=== PATIENT | female | born 1955 | race African-American/Black ===

== ENCOUNTER 2019-09-25 17:01 | Inpatient (IN) | payer BC ==
[~2019-09-25] VITALS: Ht 162.6 cm; Wt 82.1 kg
[2019-09-25] MEDS ORDERED: IPRATROPIUM BROMIDE (0.02%) 0.5MG/2.5ML NEB HHN STA (17:49)
[2019-09-25] MEDS ORDERED: METHYLPREDNISOLONE SOD SUCC 125 MG/2 ML VIAL IV STA (17:49)
[2019-09-25] MEDS ORDERED: ALBUTEROL (0.083%) 2.5MG/3ML NEB HHN STA ×2 (17:49→19:36)
[2019-09-25 18:34] LABS: BASOPHILS % 0.3 % (0.0-2.0); EOSINOPHILS % 4.9 % (0.0-5.0); HEMATOCRIT. 43.3 % (36.0-48.0); HEMOGLOBIN. 13.9 g/dL (12.0-16.0); LYMPHOCYTES % 27.1 % (20.0-50.0); MEAN CORPUSCULAR HEMOGLOBIN 28.6 pg (28.0-32.0); MEAN CORPUSCULAR VOLUME 88.9 fL (81.0-99.0); MEAN PLATELET VOLUME 7.4 fl (7.4-10.4); MONOCYTES % 9.7 % (2.0-8.0); PLATELET 405 x1000/uL (130-400); RED BLOOD CELL COUNT 4.87 mill/uL (4.2-5.4); RED CELL DISTRIBUTION WIDTH 14.3 % (11.6-14.6)
[2019-09-25 18:41] LABS: CHLORIDE 106 mEq/L (98-107)
[2019-09-25] MEDS ORDERED: SODIUM CHLORIDE 0.9% 1,000 ML IV ONE (19:36)
[2019-09-25] MEDS ORDERED: GUAIFENESIN/CODEINE 200-20MG/10ML UDC PO ONE (20:00)
[2019-09-25] MEDS ORDERED: GUAIFENESIN 200MG/10ML SUGAR FREE UDC PO PRN (20:15)
[2019-09-25] MEDS ORDERED: ACETAMINOPHEN 325MG TABLET PO PRN (20:15)
[2019-09-25] MEDS ORDERED: NA PHOS,M-B/NA PHOS,DI-BA ENEMA 118ML PR PRN (20:15)
[2019-09-25] MEDS ORDERED: DOCUSATE SODIUM 100MG CAPSULE PO PRN (20:15)
[2019-09-25] MEDS ORDERED: DIPHENHYDRAMINE 50MG/ML VIAL IV PRN (20:15)
[2019-09-25] MEDS ORDERED: MAGNESIUM/ALUMINUM HYDROXIDE/SIMETHICONE 30ML UDC PO PRN (20:15)
[2019-09-25] MEDS ORDERED: LEVOFLOXACIN 500MG PREMIX 100 ML IV SCH (20:15)
[2019-09-25] MEDS ORDERED: ONDANSETRON HCL 4MG/2ML INJ IV PRN (20:15)
[2019-09-25] MEDS ORDERED: MORPHINE SULFATE 2 MG/ML CPJ (NOT FOR IM USE) IV PRN (20:15)
[2019-09-25] MEDS ORDERED: LORAZEPAM 2MG/ML CPJ IV PRN (20:15)
[2019-09-25] MEDS ORDERED: ENOXAPARIN 40MG/0.4ML SYR SUBCUT SCH (20:15)
[2019-09-25] MEDS ORDERED: CLONIDINE 0.1MG TABLET PO PRN (20:15)
[2019-09-25] MEDS: HYDROCODONE/ACETAMINOPHEN 5/325MG TABLET PO PRN (21:11)
[2019-09-25] MEDS: ENOXAPARIN 30MG/0.3ML SYR SUBCUT SCH (21:46)
[2019-09-25] MEDS ORDERED: METF500T60 MT (23:12)
[2019-09-25] MEDS ORDERED: BENA5TAB6 MT (23:12)
[2019-09-25] MEDS: LEVOFLOXACIN 500MG PREMIX 100 ML IV SCH (23:21)
[2019-09-25] MEDS: METHYLPREDNISOLONE SOD SUCC 125 MG/2 ML VIAL IV SCH (23:21)
[2019-09-26] VITALS: BP 124/56
[2019-09-26 00:24] LABS: CHLORIDE 105 mEq/L (98-107)
[2019-09-26 02:06] VITALS: BP 124/86
[2019-09-26] MEDS: GUAIFENESIN/CODEINE 200-20MG/10ML UDC PO PRN ×3 (02:52→22:02)
[2019-09-26] MEDS ORDERED: DEXTROSE 50% WATER 50ML SYRINGE IV PRN (03:00)
[2019-09-26 04:00] VITALS: BP 128/71
[2019-09-26] MEDS: METHYLPREDNISOLONE SOD SUCC 125 MG/2 ML VIAL IV SCH ×3 (05:34→18:59)
[2019-09-26] MEDS: BLOOD SUGAR DIAGNOSTIC STRIP TEST SCH ×4 (05:34→21:48)
[2019-09-26 06:15] LABS: CHLORIDE 105 mEq/L (98-107)
[2019-09-26 06:16] LABS: BASOPHILS % 0.1 % (0.0-2.0); EOSINOPHILS % 0.3 % (0.0-5.0); HEMATOCRIT. 39.6 % (36.0-48.0); HEMOGLOBIN. 13.1 g/dL (12.0-16.0); MEAN CORPUSCULAR HEMOGLOBIN 29.5 pg (28.0-32.0); MEAN CORPUSCULAR VOLUME 89.2 fL (81.0-99.0); MEAN PLATELET VOLUME 7.5 fl (7.4-10.4); MONOCYTES % 1.1 % (2.0-8.0); NEUTROPHILS % 89.5 % (40.0-76.0); PLATELET 394 x1000/uL (130-400); RED BLOOD CELL COUNT 4.44 mill/uL (4.2-5.4); RED CELL DISTRIBUTION WIDTH 14.1 % (11.6-14.6)
[2019-09-26 06:24] LABS: LDL CHOLESTEROL 80 mg/dL (5-100)
[2019-09-26 06:25] LABS: HDL CHOLESTEROL 53 mg/dL (40-59)
[2019-09-26] MEDS: INSULIN LISPRO 100 UNITS/ML SUBCUT SCH ×4 (06:54→22:00)
[2019-09-26 08:00] VITALS: BP 132/77
[2019-09-26] MEDS: ASPIRIN 81MG EC TABLET PO SCH (09:37)
[2019-09-26] MEDS: ENOXAPARIN 30MG/0.3ML SYR SUBCUT SCH (09:38)
[2019-09-26] MEDS: IPRATROPIUM/ALBUTEROL 0.5-3(2.5)MG/3ML NEB NEB PRN (10:09)
[2019-09-26] MEDS: HYDROCODONE/ACETAMINOPHEN 5/325MG TABLET PO PRN (15:26)
[2019-09-26 15:51] LABS: BG BASE EXCESS -2.2 mmol/L (-2.0-2.0); BG CARBOXYHEMOGLOBIN 0.3 % (0.5-1.5); BG DEOXYHEMOGLOBIN 7.2 % (0.0-5.0); BG FRACTION INSPIRED OXYGEN 21; BG METHEMOGLOBIN 0.2 % (0.0-1.5); BG OXYGEN SATURATION 92.8 % (92.0-98.5); BG OXYHEMOGLOBIN 92.3 % (94.0-97.0); BG PCO2 35.8 mmHg (35.0-45.0); BG PH 7.406 (7.350-7.450); BG PO2 69.9 mmHg (75.0-100.0); BG SAMPLE SITE RIGHT RADIAL; BG TOTAL HEMOGLOBIN 13.6 g/dL (12.0-18.0); BG VENT MODE ROOM AIR
[2019-09-26 19:00] VITALS: BP 159/84
[2019-09-26] MEDS: LEVOFLOXACIN 500MG PREMIX 100 ML IV SCH (22:00)
[2019-09-27] MEDS: METHYLPREDNISOLONE SOD SUCC 125 MG/2 ML VIAL IV SCH ×3 (00:19→12:07)
[2019-09-27] MEDS: BLOOD SUGAR DIAGNOSTIC STRIP TEST SCH ×4 (06:40→21:36)
[2019-09-27] MEDS: INSULIN LISPRO 100 UNITS/ML SUBCUT SCH ×4 (06:42→22:26)
[2019-09-27 08:00] VITALS: BP 140/76
[2019-09-27] MEDS: IPRATROPIUM/ALBUTEROL 0.5-3(2.5)MG/3ML NEB NEB PRN (08:01)
[2019-09-27] MEDS: ASPIRIN 81MG EC TABLET PO SCH (08:20)
[2019-09-27] MEDS: ENOXAPARIN 40MG/0.4ML SYR SUBCUT SCH (08:21)
[2019-09-27 12:00] VITALS: BP 136/77
[2019-09-27] MEDS: GUAIFENESIN/CODEINE 200-20MG/10ML UDC PO PRN ×2 (12:16→22:38)
[2019-09-27 16:00] VITALS: BP 138/72
[2019-09-27] MEDS: METHYLPREDNISOLONE SOD SUCC 40 MG/ML VIAL IV SCH ×2 (17:00→21:37)
[2019-09-27] MEDS ORDERED: SODIUM CHLORIDE 45ML SPRAY NS PRN (18:00)
[2019-09-27 20:00] VITALS: BP 154/68
[2019-09-27] MEDS: LEVOFLOXACIN 500MG PREMIX 100 ML IV SCH (21:25)
[2019-09-27] MEDS: HYDROCODONE/ACETAMINOPHEN 5/325MG TABLET PO PRN (21:41)
[2019-09-28] VITALS: BP 142/71
[2019-09-28 04:00] VITALS: BP 142/66
[2019-09-28] MEDS: METHYLPREDNISOLONE SOD SUCC 40 MG/ML VIAL IV SCH (05:14)
[2019-09-28] MEDS: INSULIN LISPRO 100 UNITS/ML SUBCUT SCH ×3 (06:31→17:40)
[2019-09-28] MEDS: BLOOD SUGAR DIAGNOSTIC STRIP TEST SCH ×3 (06:31→16:25)
[2019-09-28 08:00] VITALS: BP 133/66
[2019-09-28] MEDS ORDERED: FLUTICASONE PROPIONATE 50MCG/SPRAY BOTTLE BOTHNSTRLS SCH (09:00)
[2019-09-28] MEDS: ASPIRIN 81MG EC TABLET PO SCH (09:11)
[2019-09-28] MEDS: ENOXAPARIN 40MG/0.4ML SYR SUBCUT SCH (09:12)
[2019-09-28] MEDS: GUAIFENESIN/CODEINE 200-20MG/10ML UDC PO PRN (10:49)
[2019-09-28 12:00] VITALS: BP 150/79
[2019-09-28] MEDS ORDERED: PRED5TAB48 MT (13:12)
[2019-09-28] MEDS ORDERED: BENZ1LOZ60 MT (13:12)
[2019-09-28] MEDS ORDERED: FLUT9.9S BOTHNSTRLS (13:12)
[2019-09-28] MEDS ORDERED: BENZ-16 MT (13:12)
[2019-09-28] MEDS ORDERED: ALBU18HF2 IH (13:12)
[2019-09-28] MEDS ORDERED: THROAT LOZENGES-BENZOCAINE/MENTH/CETYLPYRD CL LOZENGES MM PRN (13:15)
[2019-09-28 16:00] VITALS: BP 149/80
[2019-09-28 16:38] VITALS: BP 149/80
[2019-09-28] MEDS ORDERED: PREDNISONE 20MG TABLET PO SCH (17:15)
== END 2019-09-28 18:00 | disposition home or self-care (01) | DRG 193 ==
LOC: ER 17:01 → 5WST 20:02 → EDBEDREQTM 20:10 → EDBEDREQ 20:10 → ENRESERV 20:10
PROVIDERS: ADMIT Internal Medicine; ATTEND Internal Medicine
DX: J18.9 Pneumonia, unspecified organism (principal); J96.00 Acute respiratory failure, unspecified whether with hypoxia or hypercapnia; J44.0 Chronic obstructive pulmonary disease with (acute) lower respiratory infection; J20.9 Acute bronchitis, unspecified; I10 Essential (primary) hypertension; E11.9 Type 2 diabetes mellitus without complications
CPT/HCPCS: 36415; 36600; 71045; 80048; 80053; 80061; 82375; 82805; 82962; 83880; 84439; 84443; 84484; 85025; 87804; 93005; 94640; 99285; C1893; J1650; J1815; J1956; J2270; J2405; J2920; J2930; J7030; J7040; J7512

== ENCOUNTER 2021-08-17 04:00 | Emergency (ER) | payer SELFPAY ==
[~2021-08-17] VITALS: Ht 162.6 cm; Wt 83.0 kg
[~2021-08-17 04:00] MED LIST: ALBU18HF2 IH; BENA5TAB6 MT; BENZ-16 MT; BENZ1LOZ60 MT; FLUT9.9S BOTHNSTRLS; METF500T60 MT; PRED5TAB48 MT
[2021-08-17] MEDS ORDERED: MAGNESIUM 2 G PREMIX 50 ML IV SCH (04:21)
[2021-08-17] MEDS ORDERED: IPRATROPIUM BROMIDE (0.02%) 0.5MG/2.5ML NEB HHN SCH (04:21)
[2021-08-17] MEDS ORDERED: ALBUTEROL (0.083%) 2.5MG/3ML NEB HHN SCH (04:21)
[2021-08-17] MEDS ORDERED: METHYLPREDNISOLONE SOD SUCC 40 MG/ML VIAL IV SCH (04:21)
[2021-08-17 06:48] LABS: CLARITY URINE CLEAR (CLEAR); COLOR URINE YELLOW (YELLOW); KETONES URINE TRACE (NEGATIVE); LEUKOCYTE ESTERASE URINE 2+ (NEGATIVE); NITRITE URINE NEGATIVE (NEGATIVE); OCCULT BLOOD URINE NEGATIVE (NEGATIVE); PROTEIN URINE NEGATIVE (NEGATIVE); SPECIFIC GRAVITY URINE 1.027 (1.005-1.030); UROBILINOGEN URINE 0.2 E.U./dL (0.2-1.0)
[2021-08-17 06:59] LABS: BASOPHILS % 0.4 % (0.0-2.0); EOSINOPHILS % 13.1 % (0.0-5.0); HEMOGLOBIN. 14.2 g/dL (12.0-16.0); LYMPHOCYTES % 36.7 % (20.0-50.0); MEAN CORPUSCULAR HEMOGLOBIN 28.9 pg (28.0-32.0); MEAN CORPUSCULAR VOLUME 89.5 fL (81.0-99.0); MEAN PLATELET VOLUME 7.6 fl (7.4-10.4); MONOCYTES % 8.5 % (2.0-8.0); NEUTROPHILS % 41.3 % (40.0-76.0); PLATELET 390 x1000/uL (130-400); RED BLOOD CELL COUNT 4.92 mill/uL (4.2-5.4); RED CELL DISTRIBUTION WIDTH 14.2 % (11.6-14.6)
[2021-08-17] MEDS ORDERED: ALBU90AE INH (07:03)
[2021-08-17] MEDS ORDERED: P20 MT (07:03)
[2021-08-17] MEDS ORDERED: ALBUTEROL (0.083%) 2.5MG/3ML NEB HHN ONE (07:15)
[2021-08-17 07:39] LABS: CHLORIDE 106 mEq/L (98-107)
[2021-08-17 10:08] VITALS: BP 158/69
== END 2021-08-17 10:11 | disposition home or self-care (01) ==
LOC: ER 04:00
DX: J06.9 Acute upper respiratory infection, unspecified (principal); J45.909 Unspecified asthma, uncomplicated; Z88.0 Allergy status to penicillin
CPT/HCPCS: 36415; 71045; 80053; 81003; 83605; 83880; 84484; 85025; 87040; 87086; 87426; 94640; 99285; J2920; J3475; Z7610